=== PATIENT | female | born 1990 | race African-American/Black ===

== ENCOUNTER → 2019-04-02 | Outpatient (CLI) | payer OTHER ==
[2015-07-02 23:50] VITALS: BP 113/70
[~2019-04-02] MED LIST: FERR325T14 PO; HYDR-3164 PO; IBUP200T77 PO; NAPR-683 PO; NORE5TAB3 PO
--- NOTE | 2019-04-02 16:51 | RAD ---
EXAM: Pelvic sonogram. HISTORY: Fibroids. Pelvic pain. TECHNIQUE: Sonographic imaging of the pelvis was performed. COMPARISON: None. FINDINGS: The uterus is enlarged and contains multiple fibroids. The uterus measures 12.4 x 7.4 x 8.7 cm and the largest fibroid measures 6.5 cm. The endometrial stripe is obscured. The right ovary is not seen. The left ovary contains a 4.2 cm complex cyst with suspected debris. There is normal left ovarian blood flow. There is a small to moderate amount of pelvic free fluid. IMPRESSION: 1. Enlarged uterus containing multiple fibroids, the largest of which measures 6.5 cm. These obscure the endometrial stripe. 2. 4.2 cm complex cyst within the left ovary with suspected internal debris. The right ovary is obscured. 3. Small to moderate pelvic free fluid. Electronically signed by: Nathalia Auguste MD (04/02/2019 4:48 PM) [id number]
== END | disposition home or self-care (01) ==
LOC: US 15:55
PROVIDERS: ATTEND Family Medicine
DX: N85.2 Hypertrophy of uterus (principal); N83.292 Other ovarian cyst, left side; D25.9 Leiomyoma of uterus, unspecified
CPT/HCPCS: 76830; 76856